=== PATIENT | female | born 1965 | race American Indian/Alaskan Native ===

== ENCOUNTER 2016-11-10 15:21 | Emergency (ER) | payer SELFPAY ==
[2016-11-10 15:40] VITALS: BP 148/61; PULSE 84; TEMP 98.6; BMI 31.1
--- NOTE | 2016-11-10 15:52 | ED PDOC ---
Arrival/HPI - General Chief Complaint: Dental Pain Time Seen by Provider: 11/10/16 15:30 Historian: Patient - History of Present Illness Narrative History of Present Illness (Text): 11/10/16 15:50 51-year-old female presents today with left lower dental pain as well as a fever blister to the left lower lip. Patient states she went to the pharmacy the other day and started applying Abreva. Patient states it's now crusted over. She is complaining of slight pain to the area. Patient also complaining of pain to the left lower molar. Patient states she is supposed to be having some dental work done but hasn't had time to schedule her follow-up appointment with her dentist yet. Patient states she took some Motrin for pain at home. Denies fevers or chills. Denies trismus or drooling. No other complaints. Time/Duration: Other (4 days) Symptom Course: Unchanged Quality: Aching, Burning Severity Level: 4 Past Medical History - Provider Review Nursing Documentation Reviewed: Yes - Travel History Have you recently traveled outside [place] w/in the past 3 mons?: No - Tetanus Immunization Tetanus Immunization: Unknown - Cardiac Hx Cardiac Disorders: No - Pulmonary Hx Respiratory Disorders: No - Neurological Hx Neurological Disorder: No - HEENT Hx HEENT Disorder: No - Renal Hx Renal Disorder: No - Endocrine/Metabolic Hx Endocrine Disorders: No - Hematological/Oncological Hx Blood Disorders: No - Integumentary Hx Dermatological Disorder: No - Musculoskeletal/Rheumatological Hx Musculoskeletal Disorders: No - Gastrointestinal Hx Gastrointestinal Disorders: No - Genitourinary/Gynecological Hx Genitourinary Disorders: No - Psychiatric Hx Psychophysiologic Disorder: No Hx Substance Use: No - Surgical History Hx Section: Yes - Anesthesia Hx Anesthesia: Yes Family/Social History - Physician Review Nursing Documentation Reviewed: Yes Family/Social History: Unknown Family HX Smoking Status: Never Smoked Hx Alcohol Use: No Hx Substance Use: No Allergies/Home Meds Allergies/Adverse Reactions: Allergies No Known Allergies Allergy (Verified 11/10/16 15:40) Review of Systems - Review of Systems Constitutional: absent: Fatigue, Fevers ENT: Other (+ left lower dental pain) Respiratory: absent: SOB, Cough Cardiovascular: absent: Chest Pain Gastrointestinal: absent: Abdominal Pain Musculoskeletal: absent: Arthralgias Skin: Skin Lesions (fever blister left lower lip) Physical Exam Vital Signs Reviewed: Yes Vital Signs Temp Pulse Resp BP Pulse Ox 11/10/16 15:40 98.6 F 84 16 148/61 100 11/10/16 15:39 98.6 F 84 16 148/61 100 Temperature: Afebrile Blood Pressure: Normal Pulse: Regular Respiratory Rate: Normal Appearance: Positive for: Well-Appearing, Non-Toxic, Comfortable Pain Distress: None Mental Status: Positive for: Alert and Oriented X 3 - Systems Exam Head: Present: Atraumatic Conjunctiva: Present: Normal Mouth: Present: Moist Mucous Membranes. No: Drooling, Trismus, Normal Lips ( there is a 1cm round crusted over blister noted to the corner of the left lower lip; no surrounding erythema; minimal tenderness. ), Normal Teeth (+ ttp over left lower incisor; + edema, no erythema; no abscess, no trismus or drooling. ) Pharnyx: Present: Normal. No: ERYTHEMA, EXUDATE, Muffled/Hoarse Voice, Strider Neck: Present: Normal Range of Motion. No: Lymphadenopathy Respiratory/Chest: Present: Clear to Auscultation Cardiovascular: Present: Regular Rate and Rhythm Skin: Present: Warm, Dry Psychiatric: Present: Alert, Oriented x 3 Medical Decision Making ED Course and Treatment: 11/10/16 15:56 Patient is nontoxic well-appearing in no distress with stable vital signs No trismus or drooling, moist mucous membranes Amoxicillin Toradol I advised follow-up with the dentist within the next 2 days. I advised immediate return is symptoms worsen persist or if new concerning symptoms develop Patient verbalizes understanding of discharge instructions and need for immediate followup. Impression: Toothache, herpes simplex labialis Motrin every 6 hours as needed for pain Amoxicillin 1 tablet 3 times daily x 10 days Continue using abreva to the affected area. Follow-up with the dentist within the next 2 days Return immediately if symptoms worsen persist or if new concerning symptoms develop - Medication Orders Current Medication Orders: Amoxicillin (Amoxil 500 Mg Cap) 500 mg PO STAT STA PRN Reason: Protocol Stop: 11/10/16 15:48 Ketorolac Tromethamine (Toradol) 60 mg IM STAT STA Stop: 11/10/16 15:48 Disposition/Present on Arrival - Present on Arrival Any Indicators Present on Arrival: No History of DVT/PE: No History of Uncontrolled Diabetes: No Urinary Catheter: No History of Decub. Ulcer: No History Surgical Site Infection Following: None - Disposition Have Diagnosis and Disposition been Completed?: Yes Diagnosis: Toothache, Herpes simplex labialis Disposition: HOME/ ROUTINE Disposition Time: 15:57 Patient Plan: Discharge Condition: GOOD Discharge Instructions (ExitCare): Oral Herpes Simplex Virus Infections (ED), Toothache (ED) Additional Instructions: Motrin every 6 hours as needed for pain Amoxicillin 1 tablet 3 times daily x 10 days Continue using abreva to the affected area. Follow-up with the dentist within the next 2 days Return immediately if symptoms worsen persist or if new concerning symptoms develop Prescriptions: Amoxicillin 500 mg PO TID #30 tab Ibuprofen [Motrin] 600 mg PO Q6H PRN #20 tab PRN Reason: pain/fever reduction Referrals: Haim David DMD [Non-Staff] - Follow up with primary Telma Espinoza MD [Staff Provider] - Follow up with primary Forms: WORK NOTE
[2016-11-10 16:18] VITALS: RESP 18; O2SAT 98
== END 2016-11-10 16:18 | disposition home or self-care (01) ==
LOC: ED 15:21
DX: K08.89 Other specified disorders of teeth and supporting structures (principal); B00.1 Herpesviral vesicular dermatitis
CPT/HCPCS: 96372; 99282; J1885

== ENCOUNTER 2016-11-19 12:18 | Emergency (ER) | payer SELFPAY ==
[2016-11-19 12:19] VITALS: BMI 31.1
[2016-11-19 12:36] VITALS: BP 135/71; PULSE 92; RESP 16; TEMP 99; O2SAT 97
--- NOTE | 2016-11-19 12:51 | ED PDOC ---
Arrival/HPI - General Chief Complaint: ENT Problem Time Seen by Provider: 11/19/16 12:33 Historian: Patient - History of Present Illness Narrative History of Present Illness (Text): 11/19/16 12:40 A 51 year old female present to the emergency department complaining of a sore throat and right lymph node swelling to the neck for the past few days. Patient denies any fever or difficultly tolerating PO. The patient also notes this morning after waking up she had green crust over the left eye. Patient does wear contacts. She denies any vision change or any other complaints at this time. PMD: Dr. Gonzalez Time/Duration: Other Symptom Onset: Sudden Symptom Course: Unchanged Quality: Other Activities at Onset: Rest Context: Home Past Medical History - Provider Review Nursing Documentation Reviewed: Yes - Tetanus Immunization Tetanus Immunization: Unknown - Cardiac Hx Cardiac Disorders: No - Pulmonary Hx Respiratory Disorders: No - Neurological Hx Neurological Disorder: No - HEENT Hx HEENT Disorder: No - Renal Hx Renal Disorder: No - Endocrine/Metabolic Hx Endocrine Disorders: No - Hematological/Oncological Hx Blood Disorders: No - Integumentary Hx Dermatological Disorder: No - Musculoskeletal/Rheumatological Hx Musculoskeletal Disorders: No - Gastrointestinal Hx Gastrointestinal Disorders: No - Genitourinary/Gynecological Hx Genitourinary Disorders: No - Psychiatric Hx Psychophysiologic Disorder: No Hx Substance Use: No - Surgical History Hx Section: Yes - Anesthesia Hx Anesthesia: Yes Family/Social History - Physician Review Nursing Documentation Reviewed: Yes Family/Social History: Unknown Family HX Smoking Status: Never Smoked Hx Alcohol Use: No Hx Substance Use: No Allergies/Home Meds Allergies/Adverse Reactions: Allergies No Known Allergies Allergy (Verified 11/19/16 12:33) Physical Exam - Physical Exam Narrative Physical Exam (Text): - Review of Systems Constitutional: Normal. absent: Fatigue, Weight Change, Fevers Eyes: Green crust over left eye. ENT: Lymph node swelling. Sore throat. Respiratory: Normal absent: SOB, Cough, Sputum Cardiovascular: Normal absent: Chest pain, Palpitations, Syncope Gastrointestinal: Normal absent: Abdominal pain, Diarrhea, Nausea, Vomiting Genitourinary: Normal. absent: Dysuria, Frequency, Hematuria Musculoskeletal: Normal. absent: Arthralgias, Back Pain, Neck Pain Skin: Normal Neurological: Normal absent: Focal Weakness Endocrine: Normal Hemo/Lymphatic: Normal Psychiatric: Normal - Physical exam Patient appears age appropriate, speaking full sentences without difficulty - Systems Exam Head: Present: Atraumatic, Normocephalic Pupils: Present: PERRL. No erythema b/l. Extraocular Muscles: Present: EOMI Conjunctiva: Present: Normal Mouth: Present: Moist Mucous Membranes Pharnyx: Present: Normal, Other (No floor mouth pain or elevation, no trismus). R. submandibular 1cm palpable tender LN. No: ERYTHEMA, EXUDATE, TONSILS ENLARGED , Peritonsilar Swelling, Uvular Deviation, Strider Neck: Present: Normal Range of Motion. No: MIDLINE TENDERNESS, Paraspinal Tenderness Respiratory/Chest: Present: Clear to Auscultation, Good Air Exchange. No: Respiratory Distress, Accessory Muscle Use, Tachypneic Cardiovascular: Present: Regular Rate and Rhythm, Normal S1, S2, Peripheral Pulses Present. No: Murmurs Abdomen: Present: Normal Bowel Sounds, No: Tenderness, Peritoneal Signs, Rebound, Guarding, Distention Back: Present: Normal Inspection. No: Midline Tenderness, Paraspinal Tenderness Upper Extremity: Present: Normal Inspection. No: Cyanosis, Edema Lower Extremity: Present: Normal Inspection. No: Edema Neurological: Present: GCS=15, Speech Normal, cranial nerves II through XII fully intact with no cerebellar abnormality, neuro-sensory fully intact. No focal neurological deficits. Skin: Present: Warm, Dry, Normal Color. No: Rashes Psychiatric: Present: Alert, Oriented x 3, Normal Insight, Normal Concentration Vital Signs Reviewed: Yes Vital Signs Temp Pulse Resp BP Pulse Ox 11/19/16 12:35 99 F 92 H 16 135/71 97 Temperature: Afebrile Blood Pressure: Normal Pulse: Regular Respiratory Rate: Normal Appearance: Positive for: Well-Appearing, Non-Toxic, Comfortable Pain Distress: None Mental Status: Positive for: Alert and Oriented X 3 Medical Decision Making ED Course and Treatment: 11/19/16 12:40 Impression: A 51 year old female with a sore throat and right lymph node swelling. PE shows no floor mouth pain or elevation, no trismus. R. submandibular 1cm palpable tender LN. No: ERYTHEMA, EXUDATE, TONSILS ENLARGED, Peritonsilar Swelling, Uvular Deviation, Strider Prior Visits: Notes and results from previous visits were reviewed. The patient was seen on for dental complaints and was discharged home with amoxicillin for 10 days. Pt stays her toothache resolved and she was non-compliant with abx Progress Notes: 11/19/16 12:53 On re-evaluation, the patient feels better and is in no acute distress. I have discussed the results and plan with the patient, who expresses understanding. Patient in agreement with plan to discharged home. Patient is stable for discharge. Patient was instructed to follow up with physician/clinic in 1-2 days or return if symptoms worsen or new concerning symptoms arise. - Scribe Statement The provider has reviewed the documentation as recorded by the Scribe Arti Gillespie Provider Scribe Attestation: All medical record entries made by the Scribe were at my direction and personally dictated by me. I have reviewed the chart and agree that the record accurately reflects my personal performance of the history, physical exam, medical decision making, and the department course for this patient. I have also personally directed, reviewed, and agree with the discharge instructions and disposition. Disposition/Present on Arrival - Present on Arrival Any Indicators Present on Arrival: No History of DVT/PE: No History of Uncontrolled Diabetes: No Urinary Catheter: No History of Decub. Ulcer: No History Surgical Site Infection Following: None - Disposition Have Diagnosis and Disposition been Completed?: Yes Diagnosis: Sore throat, Conjunctivitis Disposition: HOME/ ROUTINE Disposition Time: 12:53 Patient Plan: Discharge Condition: GOOD Discharge Instructions (ExitCare): Pharyngitis (ED), Conjunctivitis (ED) Additional Instructions: PLEASE RETURN TO THE EMERGENCY DEPARTMENT FOR NEW OR WORSENING SYMPTOMS. RETURN RIGHT AWAY IF YOU CANNOT FOLLOW UP WITH YOUR PRIMARY CARE DOCTOR, CLINIC, OR SPECIALIST IN 1-2 DAYS. Prescriptions: Ciprofloxacin 0.3% [Ciloxan 0.3% Ophth SOLN] 25 drop OS DAILY #1 bottle Referrals: Dahiana Gonzalez MD [Primary Care Provider] - Follow up with primary Ok Stern MD [Staff Provider] - Follow up with primary Bairon Schmid DO [Staff Provider] - Follow up with primary
== END 2016-11-19 13:12 | disposition home or self-care (01) ==
LOC: ED 12:18
DX: J02.9 Acute pharyngitis, unspecified (principal); H10.9 Unspecified conjunctivitis

== ENCOUNTER 2017-01-04 15:48 | Emergency (ER) | payer OTHER ==
[2017-01-04 15:48] VITALS: BMI 31.1
[2017-01-04 15:57] VITALS: RESP 16; TEMP 98.6; O2SAT 98
--- NOTE | 2017-01-04 15:58 | ED PDOC ---
Arrival/HPI - General Time Seen by Provider: 01/04/17 15:54 Historian: Patient - History of Present Illness Narrative History of Present Illness (Text): 01/04/17 15:55 51 y/o female, no significant pmh, post menopausal, last tetanus under 7 years ago, nkda, c/o lt. eye irritation and itching for a week and more irritated for the past 3 days. Itching with tearing, been rubbing the left eye, more irritated the past 3 days, no change in vision, no dizziness, no headache, no neck pain, no other medical or psychological complaints. Past Medical History - Provider Review Nursing Documentation Reviewed: Yes - Tetanus Immunization Tetanus Immunization: Unknown - Cardiac Hx Cardiac Disorders: No - Pulmonary Hx Respiratory Disorders: No - Neurological Hx Neurological Disorder: No - HEENT Hx HEENT Disorder: No - Renal Hx Renal Disorder: No - Endocrine/Metabolic Hx Endocrine Disorders: No - Hematological/Oncological Hx Blood Disorders: No - Integumentary Hx Dermatological Disorder: No - Musculoskeletal/Rheumatological Hx Musculoskeletal Disorders: No - Gastrointestinal Hx Gastrointestinal Disorders: No - Genitourinary/Gynecological Hx Genitourinary Disorders: No - Psychiatric Hx Psychophysiologic Disorder: No Hx Substance Use: No - Surgical History Hx Section: Yes - Anesthesia Hx Anesthesia: Yes Family/Social History - Physician Review Nursing Documentation Reviewed: Yes Family/Social History: Unknown Family HX Smoking Status: Never Smoked Hx Alcohol Use: No Hx Substance Use: No Allergies/Home Meds Allergies/Adverse Reactions: Allergies No Known Allergies Allergy (Verified 01/04/17 15:57) Review of Systems - Review of Systems Constitutional: absent: Fatigue, Night Sweats Eyes: Other (irritation). absent: Vision Changes ENT: absent: Hearing Changes Respiratory: absent: SOB, Cough Cardiovascular: absent: Chest Pain Gastrointestinal: absent: Abdominal Pain, Nausea, Vomiting Skin: absent: Rash, Pruritis, Skin Lesions Physical Exam Vital Signs Reviewed: Yes Vital Signs Temp Pulse Resp Pulse Ox 01/04/17 15:58 98.6 F 99 H 16 98 01/04/17 15:56 98.6 F 99 H 16 98 Temperature: Afebrile Pulse: Regular Respiratory Rate: Normal Appearance: Positive for: Well-Appearing, Non-Toxic, Comfortable Pain Distress: None Mental Status: Positive for: Alert and Oriented X 3 - Systems Exam Head: Present: Atraumatic, Normocephalic Pupils: Present: PERRL Extroacular Muscles: Present: EOMI Conjunctiva: Present: Normal, Other (Eyes: bilateral without correction vision 20/30, lt. 20/30 without correction, rt 20/30 without correction, no conjunctivitis, no periorbital swelling, no painful movement of the eye, FREOM without limtation, there is mild uptake on the 3 o clock with mild scarring noted, no dendritic lesion) Mouth: Present: Moist Mucous Membranes Neck: Present: Normal Range of Motion Respiratory/Chest: Present: Clear to Auscultation, Good Air Exchange. No: Respiratory Distress, Accessory Muscle Use Cardiovascular: Present: Regular Rate and Rhythm, Normal S1, S2. No: Murmurs Abdomen: Present: Normal Bowel Sounds. No: Tenderness, Distention, Peritoneal Signs Back: Present: Normal Inspection Upper Extremity: Present: Normal Inspection. No: Cyanosis, Edema Lower Extremity: Present: Normal Inspection. No: Edema Neurological: Present: GCS=15, Speech Normal, Motor Func Grossly Intact, Gait Normal, Memory Normal Skin: Present: Warm, Dry, Normal Color. No: Rashes Psychiatric: Present: Alert, Oriented x 3, Normal Insight, Normal Concentration Medical Decision Making ED Course and Treatment: 01/04/17 15:58 -fluorsein strip of the left eye show scaring and corneal abrasion, there is no ulcer on the left eye. -ciloxin opthalmic ordered -Discharge home with ciloxin, zyrtec, take tylenol as needed, eye patch, follow up with your own pmd and die cut operator within 24-48 hours, return to the ER for any new or worsening signs or symptoms. - PA / CONTRACT [place]GAL / Resident Statement MD/DO has reviewed & agrees with the documentation as recorded. Disposition/Present on Arrival - Present on Arrival Any Indicators Present on Arrival: No History of DVT/PE: No History of Uncontrolled Diabetes: No Urinary Catheter: No History Surgical Site Infection Following: None - Disposition Have Diagnosis and Disposition been Completed?: Yes Diagnosis: Corneal abrasion Disposition: HOME/ ROUTINE Disposition Time: 16:16 Patient Plan: Discharge Condition: GOOD Additional Instructions: -Discharge home with ciloxin, zyrtec, take tylenol as needed, eye patch, follow up with your own pmd and die cut operator within 24-48 hours, return to the ER for any new or worsening signs or symptoms. Prescriptions: Cetirizine HCl [Zyrtec] 10 mg PO DAILY PRN #10 tab.rapdis PRN Reason: Other Ciprofloxacin 0.3% [Ciloxan 0.3% Ophth SOLN] 2 drop OS Q4H #1 bottle Referrals: Issa Tran MD [Staff Provider] - Follow up with primary Forms: WORK NOTE
[2017-01-04] MEDS ORDERED: Ciprofloxacin 0.3% OPTH SOLN OS STA (16:11)
[2017-01-04 17:01] VITALS: PULSE 98
== END 2017-01-04 17:01 | disposition home or self-care (01) ==
LOC: ED 15:48
DX: S05.02XA Injury of conjunctiva and corneal abrasion without foreign body, left eye, initial encounter (principal); X58.XXXA Exposure to other specified factors, initial encounter

== ENCOUNTER 2017-05-23 11:55 | Emergency (ER) | payer OTHER ==
[2017-05-23 11:55] VITALS: BMI 31.1
[2017-05-23 12:05] VITALS: RESP 16; TEMP 98.9
--- NOTE | 2017-05-23 12:30 | ED PDOC ---
Arrival/HPI - General Chief Complaint: Back Pain Time Seen by Provider: 05/23/17 12:16 Historian: Patient - History of Present Illness Narrative History of Present Illness (Text): 52 y/o woman w/ pmhx of mri diagnosed disc bulge nos "years ago"NOS presents c/ o 3 weeks of worseining back pain of new chracter , originally commencing in left paralumbar region, then migrating to rt paralumbar region and now fixated in rt cva region, worsened by bodily movement/and laying down but not compromising ambulation w/ gait deficit nor her work as a therapy teacher. She does endorse recent dry cough but denies any herpetiform rash nor dysuria. Of note she had an accidental trip and fall 4 weeks ago, but pain actually commenced only 3 weeks ago despite triage report. 05/23/17 12:35 Time/Duration: < month Symptom Onset: Gradual Symptom Course: Worsening Quality: Aching Past Medical History - Provider Review Nursing Documentation Reviewed: Yes - Travel History Have you recently traveled outside [place] w/in the past 3 mons?: No - Infectious Disease Hx of Infectious Diseases: None - Tetanus Immunization Tetanus Immunization: Unknown - Reproductive Menopause: Yes - Cardiac Hx Cardiac Disorders: No - Pulmonary Hx Respiratory Disorders: No - Neurological Hx Neurological Disorder: No - HEENT Hx HEENT Disorder: No - Renal Hx Renal Disorder: No - Endocrine/Metabolic Hx Endocrine Disorders: No - Hematological/Oncological Hx Blood Disorders: No - Integumentary Hx Dermatological Disorder: No - Musculoskeletal/Rheumatological Hx Musculoskeletal Disorders: No - Gastrointestinal Hx Gastrointestinal Disorders: No - Genitourinary/Gynecological Hx Genitourinary Disorders: No - Psychiatric Hx Psychophysiologic Disorder: No Hx Substance Use: No - Surgical History Hx Section: Yes - Anesthesia Hx Anesthesia: Yes Family/Social History - Physician Review Nursing Documentation Reviewed: Yes Family/Social History: No Known Family HX Smoking Status: Never Smoked Hx Alcohol Use: No Hx Substance Use: No Allergies/Home Meds Allergies/Adverse Reactions: Allergies No Known Allergies Allergy (Verified 01/04/17 15:57) Review of Systems - Physician Review All systems were reviewed & negative as marked: Yes - Review of Systems Constitutional: Normal Eyes: Normal ENT: Normal Respiratory: Normal Cardiovascular: Normal Gastrointestinal: Normal Genitourinary Female: Normal Musculoskeletal: Back Pain Skin: Normal Neurological: Normal Endocrine: Normal Hemo/Lymphatic: Normal Psychiatric: Normal Physical Exam Vital Signs Temp Pulse Resp BP Pulse Ox 05/23/17 12:01 98.9 F 106 H 16 155/88 H 97 Temperature: Afebrile Blood Pressure: Normal Pulse: Regular Respiratory Rate: Normal Appearance: Positive for: Well-Appearing, Non-Toxic, Comfortable Pain Distress: None Mental Status: Positive for: Alert and Oriented X 3 - Systems Exam Head: Present: Atraumatic, Normocephalic Pupils: Present: PERRL Extroacular Muscles: Present: EOMI Conjunctiva: Present: Normal Mouth: Present: Moist Mucous Membranes Neck: Present: Normal Range of Motion Respiratory/Chest: Present: Clear to Auscultation, Good Air Exchange. No: Respiratory Distress, Accessory Muscle Use Cardiovascular: Present: Regular Rate and Rhythm, Normal S1, S2. No: Murmurs Abdomen: Present: Normal Bowel Sounds. No: Tenderness, Distention, Peritoneal Signs Back: Present: CVA Tenderness, Other (mild rt sided cva ttp ) Upper Extremity: Present: Normal Inspection. No: Cyanosis, Edema Lower Extremity: Present: Normal Inspection. No: Edema Neurological: Present: GCS=15, CN II-XII Intact, Speech Normal, Motor Func Grossly Intact, Normal Sensory Function, Normal Cerebellar Funct, Norm Deep Tendon Reflexes, Gait Normal Skin: Present: Warm, Dry, Normal Color. No: Rashes Psychiatric: Present: Alert, Oriented x 3, Normal Insight, Normal Concentration Medical Decision Making ED Course and Treatment: 52 y/o woman w/ pmhx of mild obesity p/w rt sided parathoracic pain. r/o ascending uti/pyelonephritis vs rt sided pna , vs most likely muscle spasm 05/23/17 12:43 05/23/2017 13:46 Ribs X-Ray IMPRESSION: Unremarkable radiographs of the chest and right ribs. No right rib fracture. Dictator: Jc Jeffrey MD 05/23/17 14:24 ua (-) for siginificant hematuria suggestive of utreterolithiasis (low suspicion anyways) nor uti. rib seris (-) for airspace disease nor fracture cyr palliated s/p analesic medication . NO midspinal ttp. will d/c home w/ advised strectches/massages medication / pmd f/u prn . 05/23/17 14:25 - Lab Interpretations Lab Results: Lab Results 05/23/17 12:20: Urine Color Yellow, Urine Appearance Cloudy, Urine pH 6.5, Ur Specific [place] 1.015, Urine Protein Negative, Urine Glucose (UA) Negative, Urine Ketones Negative, Urine Blood Trace-intact H, Urine Nitrate Negative, Urine Bilirubin Negative, Urine Urobilinogen 0.2, Ur Leukocyte Esterase Small H , Urine RBC 0 - 2, Urine WBC 0 - 2, Ur Epithelial Cells 0 - 2 - RAD Interpretation Radiology Orders: 05/23/17 12:18 RIBS RIGHT & PA CHEST [RAD] Stat - Medication Orders Current Medication Orders: Discontinued Medications Cyclobenzaprine HCl (Flexeril) 10 mg PO STAT STA Stop: 05/23/17 12:18 Last Admin: 05/23/17 12:30 Dose: 10 mg Ketorolac Tromethamine (Toradol) 60 mg IM STAT STA Stop: 05/23/17 12:17 Last Admin: 05/23/17 12:30 Dose: 60 mg MAR Pain Assessment Document 05/23/17 12:30 HI (Rec: 05/23/17 12:31 AR [id number]) Pain Reassessment Is this a pain reassessment? No Sleep Is patient sleeping during reassessment? No Presence of Pain Presence of Pain Yes Location Pain Location Body Site Back IM Administration Charges Document 05/23/17 12:30 HI (Rec: 05/23/17 12:31 AR [id number]) Injection Site MAR Injection Site Right Gluteus Bay Charges for Administration # of IM Administrations 1 Disposition/Present on Arrival - Present on Arrival Any Indicators Present on Arrival: No History of DVT/PE: No History of Uncontrolled Diabetes: No Urinary Catheter: No History of Decub. Ulcer: No History Surgical Site Infection Following: None - Disposition Have Diagnosis and Disposition been Completed?: Yes Diagnosis: Back pain Disposition: HOME/ ROUTINE Disposition Time: 14:26 Patient Plan: Discharge Condition: IMPROVED Discharge Instructions (ExitCare): Back Exercises (ED), Back Pain (GEN), Muscle Spasm (ED) Print Language: YI Additional Instructions: Please take the pain medicicne only as needed, followed by gentle massage and strecthes to help ease pain/sapsm. If pain not responding to medication and these measures with steady decrementation over the next 1-2 weeks then follwo up with your pmd for further investigation or return to the ER. Prescriptions: Cyclobenzaprine [Cyclobenzaprine HCl] 10 mg PO TID PRN #30 tab PRN Reason: Pain, Moderate (4-7) Ibuprofen [Motrin Tab] 600 mg PO Q6 PRN #50 tab PRN Reason: Pain, Moderate (4-7) Referrals: Dahiana Gonzalez MD [Primary Care Provider] - Follow up with primary Forms: [employer]yn[employer] (Cook Islander)
[2017-05-23 12:34] LABS: PH,URINE 6.5 (4.7-8.0); URINE BILIRUBIN NEGATIVE (NEGATIVE); URINE BLOOD TRACE-INTACT (NEGATIVE); URINE GLUCOSE (UA) NEGATIVE (NEGATIVE); URINE LEUKOCYTE ESTERASE SMALL Leu/uL (NEGATIVE); URINE NITRATE NEGATIVE (NEGATIVE); URINE PROTEIN NEGATIVE mg/dL (<30 mg/dL); URINE UROBILINOGEN 0.2 E.U./dL (<1 E.U./dL)
[2017-05-23 12:38] LABS: URINE APPEARANCE CLOUDY (CLEAR); URINE COLOR YELLOW (YELLOW)
[2017-05-23 12:55] LABS: URINE EPITHELIAL CELLS 0 - 2 /hpf (0-5); URINE RBC 0 - 2 /hpf (0-2); URINE WBC 0 - 2 /hpf (0-6)
--- NOTE | 2017-05-23 13:48 | RAD ---
PROCEDURE: Radiographs of the Chest and Right Ribs. HISTORY: rt isded rib cyr s/p fall 3 wks ago COMPARISON: None available. TECHNIQUE: Frontal radiograph of the chest and multiple oblique radiographs of the right ribs were obtained. FINDINGS: RIGHT RIBS: No fracture or focal lesion visualized. LUNGS: Clear. PLEURA: No pneumothorax or pleural fluid. CARDIOVASCULAR: Normal sized heart. No pulmonary vascular congestion. OTHER FINDINGS: None. IMPRESSION: Unremarkable radiographs of the chest and right ribs. No right rib fracture.
[2017-05-23 14:28] VITALS: BP 150/85; PULSE 99; O2SAT 100
== END 2017-05-23 15:05 | disposition home or self-care (01) ==
LOC: ED 11:55
DX: M54.9 Dorsalgia, unspecified (principal)
CPT/HCPCS: 71101; 81001; 87086; 87181; 96372; 99282; J1885

== ENCOUNTER 2018-05-14 15:15 | Emergency (ER) | payer OTHER ==
[2018-05-14 15:15] VITALS: BMI 31.1
--- NOTE | 2018-05-14 15:58 | ED PDOC ---
Arrival/HPI - General Time Seen by Provider: 05/14/18 15:24 Historian: Patient - History of Present Illness Narrative History of Present Illness (Text): 53 year old female, with no significant past medical history, presents to the emergency department complaining of abdominal pain for the past 2 days. Patient states she constantly feels pressure in her abdomen, but the pain is intermittent and piercing in her right lower quadrant that radiates throughout her abdomen. She notes shes taken antacid and Pepto-Bismo with no relief. She reports associated frequent urination without back pain and nausea. Patient denies fevers, chills, headache, dizziness, chest pain, shortness of breath, dark or bloody stool, dyspnea on exertion, cough, vomiting, diarrhea, back pain, neck pain, or any other complaint. Time/Duration: < week Symptom Course: Unchanged Quality: Pressure, Other (piercing) Activities at Onset: Light Context: Home Past Medical History - Provider Review Nursing Documentation Reviewed: Yes - Infectious Disease Hx of Infectious Diseases: None - Tetanus Immunization Tetanus Immunization: Unknown - Cardiac Hx Cardiac Disorders: No - Pulmonary Hx Respiratory Disorders: No - Neurological Hx Neurological Disorder: No - HEENT Hx HEENT Disorder: No - Renal Hx Renal Disorder: No - Endocrine/Metabolic Hx Endocrine Disorders: No - Hematological/Oncological Hx Blood Disorders: No - Integumentary Hx Dermatological Disorder: No - Musculoskeletal/Rheumatological Hx Musculoskeletal Disorders: No - Gastrointestinal Hx Gastrointestinal Disorders: No - Genitourinary/Gynecological Hx Genitourinary Disorders: No - Psychiatric Hx Psychophysiologic Disorder: No Hx Substance Use: No - Surgical History Hx Section: Yes - Anesthesia Hx Anesthesia: Yes Family/Social History - Physician Review Nursing Documentation Reviewed: Yes Family/Social History: No Known Family HX Smoking Status: Never Smoked Hx Alcohol Use: No Hx Substance Use: No Allergies/Home Meds Allergies/Adverse Reactions: Allergies No Known Allergies Allergy (Verified 05/14/18 16:02) Review of Systems - Physician Review All systems were reviewed & negative as marked: Yes - Review of Systems Constitutional: absent: Fatigue, Weight Change, Fevers Eyes: absent: Vision Changes, Photophobia Respiratory: absent: SOB, Cough Cardiovascular: absent: Chest Pain, Palpitations, Edema Gastrointestinal: Abdominal Pain, Nausea. absent: Stool Changes, Diarrhea, Vomiting, Appetite Changes, Hematochezia, Anorexia, Food Intolerance Genitourinary Female: Frequency. absent: Dysuria, Hematuria, Vaginal Bleeding, Vaginal Discharge Musculoskeletal: absent: Back Pain, Neck Pain Neurological: absent: Headache, Dizziness Physical Exam Vital Signs Reviewed: Yes Temperature: Afebrile Blood Pressure: Hypotensive Pulse: Regular Respiratory Rate: Normal Appearance: Positive for: Well-Appearing, Non-Toxic, Comfortable Pain Distress: None Mental Status: Positive for: Alert and Oriented X 3 - Systems Exam Head: Present: Atraumatic, Normocephalic Pupils: Present: PERRL Extroacular Muscles: Present: EOMI Conjunctiva: Present: Normal Mouth: Present: Moist Mucous Membranes Neck: Present: Normal Range of Motion. No: Meningeal Signs Respiratory/Chest: Present: Clear to Auscultation, Good Air Exchange. No: Respiratory Distress, Accessory Muscle Use Cardiovascular: Present: Regular Rate and Rhythm, Normal S1, S2. No: Murmurs Abdomen: Present: Tenderness (RLQ tenderness). No: Distention, Peritoneal Signs Back: Present: Normal Inspection. No: CVA Tenderness, Midline Tenderness, Paraspinal Tenderness Upper Extremity: Present: Normal Inspection. No: Cyanosis, Edema Lower Extremity: Present: Normal Inspection. No: Edema Neurological: Present: GCS=15, CN II-XII Intact, Speech Normal Skin: Present: Warm, Dry, Normal Color. No: Rashes Psychiatric: Present: Alert, Oriented x 3, Normal Insight, Normal Concentration Medical Decision Making ED Course and Treatment: 05/14/18 16:05 Impression: 53 year old female who presents to the emergency department complaining of abdominal pain. Abdominal pain x2d, with associated nausea and increased urinary frequency. No chest pain or sob. No constipation or diarrhea. No dark or bloody stool. C section scar unremarkable. Given RLQ pain will seen ct for ?pietro endicits. Plan: -- EKG -- Labs -- IV fluids -- Zofran -- Urinalysis -- Reassess and disposition Prior Visits: Notes and results from previous visits were reviewed. Progress Notes: 05/14/18 16:21 EKG reviewed, shows NSR @ 90bpm, no STEMI. 05/14/18 18:[address] w/ epiploic appendagitis, no appendicitis. pt requesting pain meds at this time, with rx w/ toradol informed pt regarding results and expected prognosis. She notes that she does not want percocets and is ok with motrin. will rx pain and if improved will d/c home with return indications and f/u, pt agreeable to plan. - EKG Interpretation Interpreted by ED Physician: Yes Type: 12 lead EKG - Scribe Statement The provider has reviewed the documentation as recorded by the Luis Eduardoibe Kimberly Boone Provider Scribe Attestation: All medical record entries made by the Scribe were at my direction and personally dictated by me. I have reviewed the chart and agree that the record accurately reflects my personal performance of the history, physical exam, medical decision making, and the department course for this patient. I have also personally directed, reviewed, and agree with the discharge instructions and disposition. Disposition/Present on Arrival - Present on Arrival Any Indicators Present on Arrival: No History of DVT/PE: No History of Uncontrolled Diabetes: No Urinary Catheter: No History Surgical Site Infection Following: None - Disposition Have Diagnosis and Disposition been Completed?: Yes Diagnosis: Epiploic appendagitis Disposition: HOME/ ROUTINE Disposition Time: 18:15 Condition: GOOD Additional Instructions: FOLLOWUP WITH SURGERY IF THE PAIN PERSISTS OR RETURN TO EMERGENCY DEPARTMENT I HAVE PRINTED OUT ADDITONAL INFORMATION REGARDING EPIPOLIC APPENDAGITIS. IT IS ATTACHED. ADDITONAL INFORMATION [email or web address] BRANDO BRITT, thank you for letting us take care of you today. Your provider was Mickey Breaux and you were treated for ABD PAIN. The emergency medical care you received today was directed at your acute symptoms. If you were prescribed any medication, please fill it and take as directed. It may take several days for your symptoms to resolve. Return to the Emergency Department if your symptoms worsen, do not improve, or if you have any other problems. Please contact your doctor or call one of the physicians/clinics you have been referred to that are listed on the Patient Visit Information form that is included in your discharge packet. Bring any paperwork you were given at discharge with you along with any medications you are taking to your follow up visit. Our treatment cannot replace ongoing medical care by a primary care provider outside of the emergency department. Thank you for allowing the [facility] team to be part of your care today. If you had an X-Ray or CT scan: A Radiologist will review the ED reading if any change in treatment is needed we will contact you. If you had a blood, urine, or wound culture: It will take several days for the results, if any change in treatment is needed we will contact you. If you had an STI test: It will take 48 hours for the results. Please call after 1 week if you have not heard back. Prescriptions: Ibuprofen [Motrin] 600 mg PO Q6H PRN 10 Days #40 tab PRN Reason: Pain, Moderate (4-7) Referrals: [facility] [Outside] - Follow up with primary [facility] [Outside] - Follow up with primary Dahiana Gonzalez MD [Family Provider] - Follow up with primary Stanislaw Gillespie MD [Staff Provider] - Follow up with primary
[2018-05-14] MEDS ORDERED: Sodium Chloride 0.9% 500 ML IV STA (16:02)
[2018-05-14 16:20] LABS: PH,URINE 7.5 (4.7-8.0); URINE BILIRUBIN NEGATIVE (NEGATIVE); URINE BLOOD TRACE-INTACT (NEGATIVE); URINE GLUCOSE (UA) NEGATIVE (NEGATIVE); URINE LEUKOCYTE ESTERASE NEGATIVE Leu/uL (NEGATIVE); URINE PROTEIN NEGATIVE mg/dL (<30 mg/dL); URINE UROBILINOGEN 0.2 E.U./dL (<1 E.U./dL)
[2018-05-14 16:21] LABS: URINE APPEARANCE CLEAR (CLEAR); URINE COLOR LIGHT YELLOW (YELLOW)
[2018-05-14 16:35] LABS: URINE RBC 0 - 2 /hpf (0-2); URINE WBC NEGATIVE /hpf (0-6)
[2018-05-14 16:45] LABS: ALB/GLOB RATIO 1.1 (1.1-1.8); ALBUMIN 4.2 g/dL (3.0-4.8); ALT/SGPT 28 U/L (7-56); AST/SGOT 19 U/L (14-36); BLOOD UREA NITROGEN 6 mg/dL (7-21); CALCIUM 9.2 mg/dL (8.4-10.5); GFR NON-AFRICAN AMERICAN > 60; LIPASE 30 U/L (23-300)
[2018-05-14] MEDS ORDERED: Iohexol 350 MG/100 ML VIAL ONE (16:54)
[2018-05-14 16:56] LABS: BASO # 0.02 K/mm3 (0.0-2.0); BASO % 0.2 % (0.0-3.0); EOS # 0.3 (0.0-0.7); EOS % 2.4 % (1.5-5.0); GRAN # 6.54 (1.4-6.5); HEMOGLOBIN 11.8 g/dL (12.0-16.0); LYMPH # 2.6 (1.2-3.4); LYMPH % 24.8 % (22.0-35.0); MEAN CELL VOLUME 84.7 fl (80.0-105.0); MEAN CORPUSCULAR HEMOGLOBIN 27.3 pg (25.0-35.0); MEAN CORPUSCULAR HGB CONC 32.2 g/dl (31.0-37.0); MEAN PLATELET VOLUME 10.8 fl (7.0-11.0); MONO % 9.6 % (1.0-6.0); RBC 4.32 10^6/uL (3.5-6.1); RED CELL DISTRIBUTION WIDTH 14.8 % (11.5-14.5); WHITE BLOOD COUNT 10.4 10^3/uL (4.5-11.0)
--- NOTE | 2018-05-14 17:39 | CT ---
Date of service: 05/14/2018 PROCEDURE: CT Abdomen and Pelvis with contrast HISTORY: rlq pain COMPARISON: None. TECHNIQUE: Intravenous contrast dose: 95 cc Omnipaque 350. Radiation dose: Total exam DLP = 1164.36 mGy-cm. This CT exam was performed using one or more of the following dose reduction techniques: Automated exposure control, adjustment of the mA and/or kV according to patient size, and/or use of iterative reconstruction technique. FINDINGS: LOWER THORAX: Unremarkable. LIVER: Unremarkable. No gross lesion or ductal dilatation. GALLBLADDER AND BILE DUCTS: Unremarkable. PANCREAS: Unremarkable. No gross lesion or ductal dilatation. SPLEEN: Unremarkable. ADRENALS: Unremarkable. No mass. KIDNEYS AND URETERS: Unremarkable. No hydronephrosis. No solid mass. VASCULATURE: Unremarkable. No aortic aneurysm. No atherosclerotic calcification or mural plaque present. BOWEL: Acute inflammatory changes sigmoid colon region. These appear more prominent on the anti mesenteric portion of the sigmoid. The findings likely represent acute epiploic appendagitis. Diverticulosis without an acute inflammatory component or other associated pathologic process. APPENDIX: Mobile cecum with an appendicular lith. No evidence of acute appendicitis. PERITONEUM: Trace free fluid identified in the pelvis/cul de sac. No free air. LYMPH NODES: Unremarkable. No enlarged lymph nodes. BLADDER: Unremarkable. REPRODUCTIVE: Unremarkable. BONES: No acute fracture. OTHER FINDINGS: None. IMPRESSION: Evidence of inflammatory changes primarily along the anti mesenteric border of the sigmoid/descending colon. The findings are highly suggestive of epiploic appendagitis. Unremarkable appendix.
[2018-05-14 18:59] VITALS: BP 110/69; PULSE 69; RESP 20; TEMP 98; O2SAT 98
--- NOTE | 2018-05-14 19:02 | CARD ---
APPROVED REPORT Date of service: 05/14/2018 EKG Measurement Heart [id number] 128P42 [id number] <Conclusion> Normal sinus rhythm Normal ECG
== END 2018-05-14 18:58 | disposition home or self-care (01) ==
LOC: ED 15:15
DX: K63.89 Other specified diseases of intestine (principal)
CPT/HCPCS: 74177; 80053; 81001; 83690; 83735; 85025; 93005; 96374; 96375; 99283; J1885; J2405; J7040; Q9967

== ENCOUNTER 2018-06-15 12:18 | Emergency (ER) | payer OTHER ==
[2018-06-15 12:19] VITALS: BMI 31.1
[2018-06-15 12:48] VITALS: RESP 18; O2SAT 98
[2018-06-15 14:25] LABS: BASO # 0.02 K/mm3 (0.0-2.0); BASO % 0.4 % (0.0-3.0); EOS # 0.2 (0.0-0.7); EOS % 3.5 % (1.5-5.0); HEMOGLOBIN 12.3 g/dL (12.0-16.0); LYMPH % 45.2 % (22.0-35.0); MEAN CELL VOLUME 85.8 fl (80.0-105.0); MEAN CORPUSCULAR HEMOGLOBIN 26.9 pg (25.0-35.0); MEAN CORPUSCULAR HGB CONC 31.3 g/dl (31.0-37.0); MEAN PLATELET VOLUME 10.8 fl (7.0-11.0); MONO # 0.8 (0.1-0.6); MONO % 18.6 % (1.0-6.0); RBC 4.58 10^6/uL (3.5-6.1); RED CELL DISTRIBUTION WIDTH 15.2 % (11.5-14.5); WHITE BLOOD COUNT 4.5 10^3/uL (4.5-11.0)
[2018-06-15 14:43] LABS: ALT/SGPT 32 U/L (7-56); AST/SGOT 19 U/L (14-36); BLOOD UREA NITROGEN 7 mg/dL (7-21); GFR NON-AFRICAN AMERICAN > 60
[2018-06-15 14:48] LABS: TROPONIN I < 0.01 ng/mL
[2018-06-15 15:58] VITALS: BP 128/69; PULSE 86; TEMP 99.2
--- NOTE | 2018-06-15 16:35 | CARD ---
APPROVED REPORT Date of service: 06/15/2018 EKG Measurement Heart [id number] 130P48 [id number] <Conclusion> Normal sinus rhythm Normal ECG
[2018-06-15 17:17] LABS: URINE BILIRUBIN NEGATIVE (NEGATIVE); URINE BLOOD TRACE-INTACT (NEGATIVE); URINE GLUCOSE (UA) NEGATIVE (NEGATIVE); URINE LEUKOCYTE ESTERASE SMALL Leu/uL (NEGATIVE); URINE PROTEIN NEGATIVE mg/dL (<30 mg/dL)
--- NOTE | 2018-06-15 17:17 | ED PDOC ---
Arrival/HPI - General Chief Complaint: Flu-like Symptoms Time Seen by Provider: 06/15/18 12:20 Historian: Patient - History of Present Illness Narrative History of Present Illness (Text): 06/15/18 12:55 53 year old female, with no significant past medical history, who presents to the emergency department with flu-like symptoms for the past 2 days. Patient's symptoms include mild frontal headache, generalized myalgias, cough, congestion, and fever. Mild chest discomfort when coughing. Patient states she took Nyquil last night for symptoms, without any significant relief. Patient denies any shortness of breath, abdominal pain, neck stiffness, dizziness, vision changes, back pain, urinary symptoms, or any other associated complaints. Patient denies any sick contacts or recent travel. PMD: Dahiana Mendoza Symptom Onset: Gradual Symptom Course: Unchanged Activities at Onset: Light Past Medical History - Provider Review Nursing Documentation Reviewed: Yes - Travel History Have you recently traveled outside [place] w/in the past 3 mons?: No - Infectious Disease Hx of Infectious Diseases: None - Tetanus Immunization Tetanus Immunization: Unknown - Cardiac Hx Cardiac Disorders: No - Pulmonary Hx Respiratory Disorders: No - Neurological Hx Neurological Disorder: No - HEENT Hx HEENT Disorder: No - Renal Hx Renal Disorder: No - Endocrine/Metabolic Hx Endocrine Disorders: No - Hematological/Oncological Hx Blood Disorders: No - Integumentary Hx Dermatological Disorder: No - Musculoskeletal/Rheumatological Hx Musculoskeletal Disorders: No - Gastrointestinal Hx Gastrointestinal Disorders: No - Genitourinary/Gynecological Hx Genitourinary Disorders: No - Psychiatric Hx Psychophysiologic Disorder: No Hx Substance Use: No - Surgical History Hx Section: Yes (x 1) - Anesthesia Hx Anesthesia: Yes Hx Anesthesia Reactions: No Hx Malignant Hyperthermia: No Family/Social History - Physician Review Nursing Documentation Reviewed: Yes Family/Social History: No Known Family HX Smoking Status: Never Smoked Hx Alcohol Use: No Hx Substance Use: No Allergies/Home Meds Allergies/Adverse Reactions: Allergies No Known Allergies Allergy (Verified 05/14/18 16:02) Review of Systems - Physician Review All systems were reviewed & negative as marked: Yes - Review of Systems Constitutional: Fevers (Pt notes fevers). absent: Normal Eyes: Normal. absent: Vision Changes ENT: Sinus Congestion (Pt notes congestion). absent: Normal Respiratory: Cough, Sputum. absent: Normal, SOB Cardiovascular: Normal, Chest Pain (discomfort when coughing). absent: Palpitations, Syncope Gastrointestinal: Normal. absent: Abdominal Pain, Nausea, Vomiting Genitourinary Female: absent: Urine Output Changes Musculoskeletal: Myalgias (Pt notes generalized myalgias). absent: Normal, Back Pain, Neck Pain Neurological: Headache (Pt notes mild frontal headache ). absent: Normal, Dizziness Physical Exam Vital Signs Reviewed: Yes Vital Signs Temp Pulse Resp BP Pulse Ox 06/15/18 15:57 99.2 F 86 18 128/69 98 06/15/18 14:18 99.9 F H 06/15/18 14:13 96 H 18 132/71 98 06/15/18 12:19 99.9 F H 102 H 18 136/85 98 Temperature: Febrile Blood Pressure: Normal Pulse: Tachycardic Respiratory Rate: Normal Appearance: Positive for: Well-Appearing, Non-Toxic Pain Distress: Mild Mental Status: Positive for: Alert and Oriented X 3 - Systems Exam Head: Present: Atraumatic, Normocephalic Pupils: Present: PERRL Extroacular Muscles: Present: EOMI Conjunctiva: Present: Normal Ears: Present: NORMAL TM, Normal Canal Mouth: Present: Moist Mucous Membranes Pharnyx: Present: Normal. No: ERYTHEMA, EXUDATE, TONSILS ENLARGED Nose (External): Present: Atraumatic Nose (Internal): Present: Normal Inspection Neck: Present: Normal Range of Motion. No: Meningeal Signs Respiratory/Chest: Present: Clear to Auscultation, Good Air Exchange, Tender to Palpation (right anterior chest wall). No: Respiratory Distress, Accessory Muscle Use, Wheezes, Rales, Rhonchi Cardiovascular: Present: Regular Rate and Rhythm, Normal S1, S2, Peripheal Pulses Present. No: Murmurs Abdomen: Present: Normal Bowel Sounds. No: Tenderness, Distention, Peritoneal Signs, Rebound, Guarding Back: Present: Normal Inspection. No: CVA Tenderness Upper Extremity: Present: Normal Inspection, Normal ROM, NORMAL PULSES, Neurovascularly Intact, Capillary Refill < 2s. No: Cyanosis, Edema, Temperature Abnormalties Lower Extremity: Present: Normal Inspection, NORMAL PULSES, Normal ROM, Neurovascularly Intact, Capillary Refill < 2 s. No: Edema, Temperature Abnormalties Neurological: Present: GCS=15, CN II-XII Intact, Speech Normal, Motor Func Grossly Intact, Normal Sensory Function, Gait Normal Skin: Present: Warm, Dry, Normal Color. No: Rashes Lymphatic: No: Cervical Adenopathy Psychiatric: Present: Alert, Oriented x 3, Normal Insight, Normal Concentration, Normal Affect, Normal Mood Medical Decision Making ED Course and Treatment: 06/15/18 12:55 Impression: 53 year old female presents to the Emergency department with flu-like symptoms for the past 2 and a half days. Initial Plan: -- EKG -- Labs -- X-Ray of chest (PA/LAT) -- Tylenol -- Rapid Strep Group A Antigen -- Influenza A B -- Urinalysis -- Reassess and disposition Prior Visits: Notes and results from previous visits were reviewed. Patient was last seen in the emergency department on 05/14/18 complaining of abdominal pain for the past 2 days. Pt was discharged home in good condition and prescribed Motrin. Progress Notes: Patient is Influenza A positive. UA significant for UTI Labwork unremarkable Diagnostic testing results and plan of care discussed with patient. Strict instructions given regarding prescription use, importance of followup, and signs/symptoms to return to ER including abdominal pain, chest pain, SOB, or any other new/worsening symptoms. Pt verbalized understanding of discussion. Patient is A&Ox3, ambulating with steady gait, with vital signs stable for discharge. - Lab Interpretations Lab Results: Troponin I < 0.01 ng/mL 06/15/18 14:11 Total Bilirubin 0.3 mg/dL (0.2-1.3) 06/15/18 14:11 AST 19 U/L (14-36) 06/15/18 14:11 ALT 32 U/L (7-56) 06/15/18 14:11 Alkaline Phosphatase 93 U/L (38-126) 06/15/18 14:11 Total Protein 7.9 g/dL (5.8-8.3) 06/15/18 14:11 Albumin 4.0 g/dL (3.0-4.8) 06/15/18 14:11 Globulin 3.9 gm/dL 06/15/18 14:11 Albumin/Globulin Ratio 1.0 (1.1-1.8) L 06/15/18 14:11 06/15/18 14:11 06/15/18 14:11 Lab Results 06/15/18 17:05: Urine Color Yellow, Urine Appearance Slight-cloudy, Urine pH 6.0, Ur Specific [place] 1.020, Urine Protein Negative, Urine Glucose (UA) Negative, Urine Ketones Negative, Urine Blood Trace-intact H, Urine Nitrate Negative, Urine Bilirubin Negative, Urine Urobilinogen 1.0 H, Ur Leukocyte Esterase Small H, Urine RBC 10 - 15 H, Urine WBC 5 - 10 H, Ur Epithelial Cells 4 - 5, Urine Bacteria Trace 06/15/18 14:11: Influenza Typ A,B (EIA) Pos for influenza a H 06/15/18 14:11: Sodium 140, Potassium 4.3, Chloride 106, Carbon Dioxide 27, Anion Gap 11, BUN 7, Creatinine 0.6 L, Est GFR ( Amer) > 60, Est GFR (Non-Af Amer) > 60, Random Glucose 95, Calcium 9.0, Total Bilirubin 0.3, AST 19, ALT 32, Alkaline Phosphatase 93, Troponin I < 0.01, Total Protein 7.9, Albumin 4.0, Globulin 3.9, Albumin/Globulin Ratio 1.0 L 06/15/18 14:11: Grp A Beta Strep Ag Negative 06/15/18 14:11: WBC 4.5 D, RBC 4.58, Hgb 12.3, Hct 39.3, MCV 85.8, MCH 26.9, MCHC 31.3, RDW 15.2 H, Plt Count 214, MPV 10.8, Neut % (Auto) 32.3 L, Lymph % (Auto) 45.2 H, Wright % (Auto) 18.6 H, Eos % (Auto) 3.5, Baso % (Auto) 0.4, Lymph # (Auto) 2.0, Wright # (Auto) 0.8 H, Eos # (Auto) 0.2, Baso # (Auto) 0.02, Absolute Neuts (auto) 1.45 I have reviewed the lab results: Yes - RAD Interpretation Narrative RAD Interpretations (Text): X-Ray of chest reviewed by radiologist, shows: Dictated By: Hubert Cerda MD Dictated Date/Time: 06/15/18 18:05 Impression: No active disease. No significant interval change compared to the prior examination(s). Radiology Orders: 06/15/18 12:59 CXR (PA/LAT) [CHEST TWO VIEWS (PA/LAT)] [RAD] Stat Stave Bolt Equalizer: Radiologist - EKG Interpretation EKG Interpretation (Text): Rate 87; NSR; Normal Intervals; No STEMI or other signs of acute ischemia Interpreted by ED Physician: Yes Type: 12 lead EKG - Medication Orders Current Medication Orders: Discontinued Medications Acetaminophen (Tylenol 325mg Tab) 975 mg PO STAT STA Stop: 06/15/18 13:01 Last Admin: 06/15/18 14:18 Dose: 975 mg MAR Pain/Vitals Document 06/15/18 14:18 MR (Rec: 06/15/18 14:18 MR [facility] [id number]) Pain Reassessment Is This A Pain ReAssessment? No Sleep Is patient sleeping during reassessment? No Presence of Pain Presence of Pain Yes Pain Scale Used Protocol: PSCALES Pain Scale Used Numeric Location Pain Location Body Site Generalized Description Constant Intensity 8 Scale Used Numeric Vitals Temperature (97.6 F-99.6 F) 99.9 F Temperature Source Oral - Scribe Statement The provider has reviewed the documentation as recorded by the Scribe Jennifer Azevedo All medical record entries made by the Scribe were at my direction and personally dictated by me. I have reviewed the chart and agree that the record accurately reflects my personal performance of the history, physical exam, medical decision making, and the department course for this patient. I have also personally directed, reviewed, and agree with the discharge instructions and disposition. Disposition/Present on Arrival - Present on Arrival Any Indicators Present on Arrival: No History of DVT/PE: No History of Uncontrolled Diabetes: No Urinary Catheter: No History of Decub. Ulcer: No History Surgical Site Infection Following: None - Disposition Have Diagnosis and Disposition been Completed?: Yes Diagnosis: Influenza A, UTI (urinary tract infection) Disposition: HOME/ ROUTINE Disposition Time: 17:00 Patient Plan: Discharge Condition: STABLE Discharge Instructions (ExitCare): Flu, Adult (DC) Additional Instructions: Tamiflu every 12 hours for 5 days Keflex every 12 hours for 7 days Increase fluids Rest, no strenuous activity Followup with primary within 2 days Return to Er with any new/worsening symptoms Prescriptions: Cephalexin [Keflex] 500 mg PO Q12H 7 Days #14 capsule Oseltamivir Cap [Tamiflu] 75 mg PO Q12H #9 cap Referrals: [facility] at [facility] [Outside] - Follow up with primary Genoveva Ayala MD [Medical Doctor] - Follow up with primary Forms: [employer] (Iraqi), WORK NOTE
[2018-06-15 17:21] LABS: URINE APPEARANCE SLIGHT-CLOUDY (CLEAR); URINE COLOR YELLOW (YELLOW)
[2018-06-15 17:33] LABS: URINE BACTERIA TRACE /hpf
--- NOTE | 2018-06-15 18:09 | RAD ---
Date of service: 06/15/2018 HISTORY: fever, cough COMPARISON: 05/23/2017. TECHNIQUE: Chest PA and lateral FINDINGS: LUNGS: No active pulmonary disease. PLEURA: No significant pleural effusion identified. No pneumothorax apparent. CARDIOVASCULAR: No aortic atherosclerotic calcification present. Normal cardiac size. No pulmonary vascular congestion. OSSEOUS STRUCTURES: No significant abnormalities. VISUALIZED UPPER ABDOMEN: Normal. OTHER FINDINGS: None. IMPRESSION: No active disease. No significant interval change compared to the prior examination(s).
== END 2018-06-15 17:40 | disposition home or self-care (01) ==
LOC: ED 12:18
DX: J10.1 Influenza due to other identified influenza virus with other respiratory manifestations (principal); N39.0 Urinary tract infection, site not specified

== ENCOUNTER 2018-07-24 12:31 | Emergency (ER) | payer OTHER | END 2018-07-24 16:40 | disposition home or self-care (01) | LOC: ED 12:31 ==

== ENCOUNTER 2018-08-10 17:18 | Emergency (ER) | payer OTHER ==
[2018-08-10 17:38] VITALS: BMI 31.3
[2018-08-10 17:41] VITALS: RESP 18; TEMP 99.4; O2SAT 100
--- NOTE | 2018-08-10 18:39 | ED PDOC ---
Arrival/HPI - General Chief Complaint: ENT Problem Time Seen by Provider: 08/10/18 18:16 Historian: Patient - History of Present Illness Narrative History of Present Illness (Text): 08/10/18 18:34 53 year old female, with no significant past medical history, who presents to the ED for throat pain when swallowing, which started over the weekend. Patient reports "a little cough," and an unpleasant taste in mouth. Patient denies any fever, chills, nausea, vomiting, abdominal pain, chest pain, shortness of breath or any other complaints. Time/Duration: 24 hours Symptom Onset: Gradual Symptom Course: Unchanged Activities at Onset: Light Context: Home Past Medical History - Provider Review Nursing Documentation Reviewed: Yes - Infectious Disease Hx of Infectious Diseases: None - Tetanus Immunization Tetanus Immunization: Unknown - Cardiac Hx Cardiac Disorders: No - Pulmonary Hx Respiratory Disorders: No - Neurological Hx Neurological Disorder: No - HEENT Hx HEENT Disorder: No - Renal Hx Renal Disorder: No - Endocrine/Metabolic Hx Endocrine Disorders: No - Hematological/Oncological Hx Blood Disorders: No - Integumentary Hx Dermatological Disorder: No - Musculoskeletal/Rheumatological Hx Musculoskeletal Disorders: No - Gastrointestinal Hx Gastrointestinal Disorders: No - Genitourinary/Gynecological Hx Genitourinary Disorders: No - Psychiatric Hx Psychophysiologic Disorder: No Hx Substance Use: No - Surgical History Hx Section: Yes (x 1) - Anesthesia Hx Anesthesia: Yes Hx Anesthesia Reactions: No Hx Malignant Hyperthermia: No Family/Social History - Physician Review Nursing Documentation Reviewed: Yes Family/Social History: Unknown Family HX Smoking Status: Never Smoked Hx Alcohol Use: No Hx Substance Use: No Allergies/Home Meds Allergies/Adverse Reactions: Allergies No Known Allergies Allergy (Verified 08/10/18 17:37) Review of Systems - Physician Review All systems were reviewed & negative as marked: Yes - Review of Systems Constitutional: absent: Fevers Respiratory: Cough. absent: SOB Physical Exam - Physical Exam Narrative Physical Exam (Text): 08/10/18 18:41 Constitutional: No acute distress. Head: Normocephalic. Atraumatic. Eyes: PERRL. ENT: Moist mucous membranes. Pharyngeal erythema without exudates. Uvula midline. No hot potato voice or drooling.Right TM is dull. Neck: Bilateral lymphadenopathy. Cardiovascular: Regular rate. Chest: No tenderness. Respiratory: Clear to auscultation bilaterally. GI: Soft. Nontender. Nondistended. Back: No CVA tenderness. Musculoskeletal: No tenderness or swelling of extremities. Skin: No rash. Neurologic: Alert, no focal deficit. Vital Signs Reviewed: Yes Vital Signs Temp Pulse Resp BP Pulse Ox 08/10/18 17:40 99.4 F 91 H 18 129/86 100 Temperature: Afebrile Blood Pressure: Normal Pulse: Regular Respiratory Rate: Normal Appearance: Positive for: Well-Appearing Pain Distress: None Mental Status: Positive for: Alert and Oriented X 3 Medical Decision Making ED Course and Treatment: 08/10/18 18:46 Impression: 53 year old female who presents to the ED for throat discomfort when swallowing. Plan: --Urine Culture --Urinalysis w/micro -- Reassess and disposition Prior Visits: Notes and results from previous visits were reviewed. Progress Notes: At time of discharge, patient states she has dysuria and malodor for 4 days. UA sent, shows WBCs, will keep on amoxicillin, culture sent. - Scribe Statement The provider has reviewed the documentation as recorded by the Igor Couch training with Arin. All medical record entries made by the Luis Eduardoibfranco were at my direction and personally dictated by me. I have reviewed the chart and agree that the record accurately reflects my personal performance of the history, physical exam, medical decision making, and the department course for this patient. I have also personally directed, reviewed, and agree with the discharge instructions and disposition. Disposition/Present on Arrival - Present on Arrival Any Indicators Present on Arrival: No History of DVT/PE: No History of Uncontrolled Diabetes: No Urinary Catheter: No History of Decub. Ulcer: No History Surgical Site Infection Following: None - Disposition Have Diagnosis and Disposition been Completed?: Yes Diagnosis: Pharyngitis, Otitis media Disposition: HOME/ ROUTINE Disposition Time: 06:44 Patient Plan: Discharge Condition: GOOD Discharge Instructions (ExitCare): Ear Infections (Otitis Media) (DC), Sore Th roat, Adult (DC) Prescriptions: Amoxicillin 875 mg PO BID #20 tablet Forms: [employer] (Ukrainian)
[2018-08-10 19:11] VITALS: BP 127/73; PULSE 86
[2018-08-10 19:15] LABS: URINE BILIRUBIN NEGATIVE (NEGATIVE); URINE BLOOD NEGATIVE (NEGATIVE); URINE GLUCOSE (UA) NEGATIVE (NEGATIVE); URINE LEUKOCYTE ESTERASE TRACE Leu/uL (NEGATIVE); URINE PROTEIN NEGATIVE mg/dL (<30 mg/dL)
[2018-08-10 19:16] LABS: URINE APPEARANCE CLEAR (CLEAR); URINE COLOR YELLOW (YELLOW)
[2018-08-10 19:29] LABS: URINE BACTERIA FEW /hpf; URINE RBC 0 - 2 /hpf (0-2)
== END 2018-08-10 19:34 | disposition home or self-care (01) ==
LOC: ED 17:18
DX: H66.90 Otitis media, unspecified, unspecified ear (principal); J02.9 Acute pharyngitis, unspecified